=== PATIENT | male | born 1965 | race Caucasian/White ===

== ENCOUNTER → 2021-02-01 | Outpatient (CLI) | payer BC ==
--- NOTE | 2021-01-27 13:17 | NUR ---
lmom with instructions and call back number
[~2021-02-01] MED LIST: COREG 3.123.125 MG/T PO; COZAAR 25MG25 MG/TAB PO; GLUCOPHAGE1000 MG PO; HCTZ12.5TAB PO; KATERZIA1 MG/1 ML PO; LIPITOR 10MG10 MG PO
[2021-02-01 10:28] LABS: INR 1.3 (0.8-3.0); PROTHROMBIN TIME 14.5 SECONDS (9.7-12.8)
--- NOTE | 2021-02-01 11:07 | NUR ---
PT CANCELLED PROCEDURE, THEN RESCHEDULED FOR 02/09 AT 1000
== END ==
LOC: COL.RAD 09:30
PROVIDERS: Internal Medicine Gastroenterology
DX: R74.8 Abnormal levels of other serum enzymes (principal); F10.10 Alcohol abuse, uncomplicated